=== PATIENT | male | born 1945 | race Caucasian/White ===

== ENCOUNTER 2017-02-20 14:29 | Emergency (ER) | payer MEDICARE ==
[~2017-02-20] VITALS: Ht 177.8 cm; Wt 104.5 kg
[~2017-02-20 14:29] MED LIST: AMARYL1 MG PO; CYMBALTA60 MG PO; FUROSEMIDE20 MG PO; LOSARTAN POT50 MG PO; XARELTO20 MG PO; ZPAK PO
[2017-02-20] MEDS ORDERED: DIGOXIN0.25 MG PO (15:17)
[2017-02-20] MEDS ORDERED: CARVEDILOL3.125 MG PO (15:17)
[2017-02-20] MEDS ORDERED: GABAPENTIN100 MG PO (15:18)
[2017-02-20] MEDS ORDERED: COUMADIN5 MG PO (15:19)
[2017-02-20] MEDS ORDERED: BUMETANIDE1 MG PO (15:19)
[2017-02-20 15:34] LABS: HEMATOCRIT 44.6 % (39.0-50.0); IMMATURE GRANULOCYTES 0.3 % (0.0-1.0); MEAN CELL VOLUME 92.5 fL CALC (80.0-100.0); MEAN CORPUSCULAR HGB CONC 31.4 g/L CALC (32.0-36.0); NEUT# 5.78 thou/uL (1.82-7.42); RED BLOOD COUNT 4.82 mill/uL (4.70-6.10); RED CELL DISTRI WIDTH 15.9 % (11.5-15.5)
[2017-02-20 15:51] LABS: INTERNATIONAL NORMALIZED RATIO 1.4 RATIO (0.7-1.3); PROTHROMBIN TIME 15.2 SECONDS (9.0-12.5)
[2017-02-20 15:55] LABS: ALBUMIN 3.8 g/dL (3.2-5.0); BILIRUBIN, TOTAL 1.3 mg/dL (0.0-1.4); CALCIUM 8.7 mg/dL (8.4-10.2); CREATININE 3.3 mg/dL (0.7-1.3); TOTAL PROTEIN 6.6 g/dL (6.3-8.2)
[2017-02-20 16:00] LABS: POTASSIUM 5.4 mmol/l (3.5-5.1)
[2017-02-20 17:38] VITALS: BP 110/52
== END 2017-02-20 17:39 | disposition short-term general hospital (02) ==
LOC: ED 14:29
PROVIDERS: Emergency Medicine
DX: E87.5 Hyperkalemia (principal); E86.0 Dehydration; N17.9 Acute kidney failure, unspecified; T46.0X5A Adverse effect of cardiac-stimulant glycosides and drugs of similar action, initial encounter; Y92.009 Unspecified place in unspecified non-institutional (private) residence as the place of occurrence of the external cause; R94.31 Abnormal electrocardiogram [ECG] [EKG]

== ENCOUNTER 2018-08-07 09:49 | Inpatient (IN) | payer MEDICARE ==
[~2018-08-07] VITALS: Ht 175.3 cm; Wt 106.6 kg
[~2018-08-07 09:49] MED LIST changes: +BUMETANIDE1 MG PO; +CARVEDILOL3.125 MG PO; +COUMADIN5 MG PO; +DIGOXIN0.25 MG PO; +GABAPENTIN100 MG PO
[2018-08-07 10:13] LABS: HEMATOCRIT 55.2 % (39.0-50.0); HEMOGLOBIN 18.7 g/dl (14.0-18.0); MEAN CELL VOLUME 91.4 fL CALC (80.0-100.0); MEAN CORPUSCULAR HGB CONC 33.9 g/L CALC (32.0-36.0); NEUT# 7.59 thou/uL (1.82-7.42); RED BLOOD COUNT 6.04 mill/uL (4.70-6.10); RED CELL DISTRI WIDTH 14.1 % (11.5-15.5)
[2018-08-07] MEDS ORDERED: PERCOCET 5/325M1 TAB PO (10:22)
[2018-08-07] MEDS ORDERED: SPIRONOLACTONE25 MG PO (10:24)
[2018-08-07] MEDS ORDERED: PREDNISONE1 MG OU (10:26)
[2018-08-07] MEDS ORDERED: KETOROLAC TROME0.4 % OU (10:27)
[2018-08-07] MEDS ORDERED: WARFARIN5 MG PO (10:28)
[2018-08-07 10:47] LABS: BILIRUBIN, TOTAL 1.4 mg/dL (0.0-1.4); CREATININE 1.9 mg/dL (0.7-1.3); POTASSIUM 4.9 mmol/l (3.5-5.1)
[2018-08-07 10:49] LABS: TOTAL PROTEIN 8.7 g/dL (6.3-8.2)
[2018-08-07 12:59] LABS: INTERNATIONAL NORMALIZED RATIO 4.6 RATIO (0.7-1.3); PROTHROMBIN TIME 53.6 SECONDS (9.0-12.5)
[2018-08-07 13:45] VITALS: BP 117/60
[2018-08-07 16:29] VITALS: BP 91/60
[2018-08-07 20:43] VITALS: BP 133/63
[2018-08-08 04:10] VITALS: BP 133/73
[2018-08-08 05:03] LABS: IMMATURE GRANULOCYTES 0.9 % (0.0-5.0); MEAN CORPUSCULAR HGB 30.8 pG CALC (26.0-32.0); MEAN CORPUSCULAR HGB CONC 34.3 g/L CALC (32.0-36.0); NEUT# 5.84 thou/uL (1.82-7.42); RED BLOOD COUNT 5.19 mill/uL (4.70-6.10); RED CELL DISTRI WIDTH 13.3 % (11.5-15.5)
[2018-08-08 05:05] LABS: HEMATOCRIT 46.7 % (39.0-50.0)
[2018-08-08 05:18] LABS: BILIRUBIN, TOTAL 0.5 mg/dL (0.0-1.4); CREATININE 1.9 mg/dL (0.7-1.3); POTASSIUM 4.7 mmol/l (3.5-5.1)
[2018-08-08 05:19] LABS: TOTAL PROTEIN 6.2 g/dL (6.3-8.2)
[2018-08-08 05:20] LABS: ALBUMIN 3.8 g/dL (3.2-5.0); MAGNESIUM 2.4 mg/dL (1.6-2.3)
[2018-08-08 07:39] VITALS: BP 100/59
[2018-08-08 15:31] VITALS: BP 107/56
[2018-08-08 20:10] VITALS: BP 117/75
[2018-08-09 04:16] VITALS: BP 130/68
[2018-08-09 05:39] LABS: ALBUMIN 3.8 g/dL (3.2-5.0); CREATININE 1.7 mg/dL (0.7-1.3); POTASSIUM 4.8 mmol/l (3.5-5.1)
[2018-08-09 08:55] VITALS: BP 149/72
[2018-08-09 09:58] LABS: PROTHROMBIN TIME 46.5 SECONDS (9.0-12.5)
[2018-08-09] MEDS ORDERED: OXYCODONE/ACETA1 TA8 PO (11:44)
[2018-08-09 14:45] VITALS: BP 131/69
[2018-08-09 19:23] VITALS: BP 131/65
[2018-08-10 05:20] VITALS: BP 123/73
[2018-08-10 06:47] LABS: HEMATOCRIT 47.7 % (39.0-50.0); HEMOGLOBIN 16.1 g/dl (14.0-18.0); IMMATURE GRANULOCYTES 1.5 % (0.0-5.0); MEAN CELL VOLUME 92.4 fL CALC (80.0-100.0); MEAN CORPUSCULAR HGB 31.2 pG CALC (26.0-32.0); MEAN CORPUSCULAR HGB CONC 33.8 g/L CALC (32.0-36.0); NEUT# 7.75 thou/uL (1.82-7.42); RED BLOOD COUNT 5.16 mill/uL (4.70-6.10); RED CELL DISTRI WIDTH 13.5 % (11.5-15.5)
[2018-08-10 06:57] LABS: ALBUMIN 3.3 g/dL (3.2-5.0); ALKALINE PHOSPHATASE 45 u/l (38-126); BILIRUBIN, TOTAL 0.4 mg/dL (0.0-1.4); BUN 45 mg/dL (8-23); BUN/CREATININE RATIO 37 (12-20 (CALC)); CARBON DIOXIDE 27 mmol/l (22-30); CHLORIDE 107 mmol/l (95-108); CREATININE 1.2 mg/dL (0.7-1.3); GFR 60 ML/MIN (>=60 (CALC)); GFR FOR AFR.AMER. > 60 ML/MIN (>=60 (CALC)); MAGNESIUM 2.4 mg/dL (1.6-2.3); SGOT/AST 16 u/l (19-48); SGPT/ALT 24 u/l (11-66); SODIUM 141 mmol/l (137-146); TOTAL PROTEIN 5.7 g/dL (6.3-8.2)
[2018-08-10 06:58] LABS: ANION GAP 13 (6-22 (CALC)); POTASSIUM 5.7 mmol/l (3.5-5.1)
[2018-08-10 07:02] LABS: INTERNATIONAL NORMALIZED RATIO 2.2 RATIO (0.7-1.3); PROTHROMBIN TIME 24.8 SECONDS (9.0-12.5)
[2018-08-10 08:20] VITALS: BP 122/72
[2018-08-10 16:35] VITALS: BP 133/60
[2018-08-10 19:21] VITALS: BP 129/57
[2018-08-11 04:53] VITALS: BP 149/81
[2018-08-11 05:44] LABS: ANION GAP 11 (6-22 (CALC)); BUN 41 mg/dL (8-23); BUN/CREATININE RATIO 36 (12-20 (CALC)); CARBON DIOXIDE 28 mmol/l (22-30); CHLORIDE 107 mmol/l (95-108); CREATININE 1.1 mg/dL (0.7-1.3); GFR > 60 ML/MIN (>=60 (CALC)); GFR FOR AFR.AMER. > 60 ML/MIN (>=60 (CALC)); MAGNESIUM 2.4 mg/dL (1.6-2.3); SODIUM 141 mmol/l (137-146)
[2018-08-11 05:48] LABS: POTASSIUM 5.2 mmol/l (3.5-5.1)
[2018-08-11 05:56] LABS: INTERNATIONAL NORMALIZED RATIO 1.6 RATIO (0.7-1.3); PROTHROMBIN TIME 18.1 SECONDS (9.0-12.5)
[2018-08-11 06:00] LABS: HEMATOCRIT 44.5 % (39.0-50.0); HEMOGLOBIN 14.9 g/dl (14.0-18.0); MEAN CELL VOLUME 92.7 fL CALC (80.0-100.0); MEAN CORPUSCULAR HGB CONC 33.5 g/L CALC (32.0-36.0); RED BLOOD COUNT 4.8 mill/uL (4.70-6.10); RED CELL DISTRI WIDTH 13.5 % (11.5-15.5)
[2018-08-11 07:50] VITALS: BP 126/84
[2018-08-11 15:25] VITALS: BP 145/74
[2018-08-11 19:05] VITALS: BP 126/70
[2018-08-12 04:21] VITALS: BP 154/75
[2018-08-12 04:44] LABS: HEMATOCRIT 45.8 % (39.0-50.0); HEMOGLOBIN 15.3 g/dl (14.0-18.0); MEAN CELL VOLUME 91.2 fL CALC (80.0-100.0); MEAN CORPUSCULAR HGB 30.5 pG CALC (26.0-32.0); MEAN CORPUSCULAR HGB CONC 33.4 g/L CALC (32.0-36.0); RED BLOOD COUNT 5.02 mill/uL (4.70-6.10); RED CELL DISTRI WIDTH 13.4 % (11.5-15.5)
[2018-08-12 04:59] LABS: ANION GAP 11 (6-22 (CALC)); BUN 40 mg/dL (8-23); BUN/CREATININE RATIO 35 (12-20 (CALC)); CARBON DIOXIDE 31 mmol/l (22-30); CHLORIDE 104 mmol/l (95-108); CREATININE 1.2 mg/dL (0.7-1.3); GFR 60 ML/MIN (>=60 (CALC)); GFR FOR AFR.AMER. > 60 ML/MIN (>=60 (CALC)); MAGNESIUM 2.2 mg/dL (1.6-2.3); POTASSIUM 4.4 mmol/l (3.5-5.1); SODIUM 142 mmol/l (137-146)
[2018-08-12 05:04] LABS: INTERNATIONAL NORMALIZED RATIO 1.3 RATIO (0.7-1.3); PROTHROMBIN TIME 14.8 SECONDS (9.0-12.5)
[2018-08-12 08:14] VITALS: BP 133/65
[2018-08-12 15:27] VITALS: BP 133/54
[2018-08-12 19:15] VITALS: BP 144/83
[2018-08-13 04:43] VITALS: BP 130/70
[2018-08-13 07:40] VITALS: BP 148/82
[2018-08-13 09:39] VITALS: BP 130/70
[2018-08-13] MEDS ORDERED: ZITHROMAX500 MG PO (11:11)
== END 2018-08-13 12:38 | disposition home or self-care (01) | DRG 291 ==
LOC: ED 09:49 → ED-I 10:35 → ED 10:35 → ED-I 12:05 → ED 12:45 → MS2 12:46
PROVIDERS: Emergency Medicine; Internal Medicine Nephrology; Nurse Practitioner Family; ADMIT Internal Medicine Nephrology; ATTEND Internal Medicine Nephrology
DX: I13.0 Hypertensive heart and chronic kidney disease with heart failure and stage 1 through stage 4 chronic kidney disease, or unspecified chronic kidney disease (principal); J18.9 Pneumonia, unspecified organism; J96.22 Acute and chronic respiratory failure with hypercapnia; I50.21 Acute systolic (congestive) heart failure; J44.1 Chronic obstructive pulmonary disease with (acute) exacerbation; G90.512 Complex regional pain syndrome I of left upper limb; N17.9 Acute kidney failure, unspecified; J44.0 Chronic obstructive pulmonary disease with (acute) lower respiratory infection; I73.9 Peripheral vascular disease, unspecified; I48.2 Chronic atrial fibrillation; E11.22 Type 2 diabetes mellitus with diabetic chronic kidney disease; N18.3 Chronic kidney disease, stage 3 (moderate); M89.8X9 Other specified disorders of bone, unspecified site; E87.5 Hyperkalemia; K59.00 Constipation, unspecified; Z91.19 Patient's noncompliance with other medical treatment and regimen; Z95.0 Presence of cardiac pacemaker; Z79.01 Long term (current) use of anticoagulants; Z95.820 Peripheral vascular angioplasty status with implants and grafts
CPT/HCPCS: G0378; J1650; J3475

== ENCOUNTER 2020-04-06 11:40 | Observation (INO) | payer MEDICARE ==
[~2020-04-06] VITALS: Ht 172.7 cm; Wt 109.9 kg
[~2020-04-06 11:40] MED LIST changes: +KETOROLAC TROME0.4 % OU; +OXYCODONE/ACETA1 TA8 PO; +PERCOCET 5/325M1 TAB PO; +PREDNISONE1 MG OU; +SPIRONOLACTONE25 MG PO; +WARFARIN5 MG PO; +ZITHROMAX500 MG PO
--- NOTE | 2020-04-06 11:50 | NUR ---
PT. WHEELED TO TREATMENT ROOM.
[2020-04-06] MEDS ORDERED: ENTRESTO 24-261 TAB PO (12:48)
[2020-04-06] MEDS ORDERED: CARVEDILOL6.25 MG PO (12:48)
[2020-04-06] MEDS ORDERED: ELIQUIS5 MG PO (12:48)
--- NOTE | 2020-04-06 12:50 | NUR ---
PT RESTING ON STRETCHER; NO S/S OF DISTRESS NOTED; MONITORING DEVICES IN PLACE; VSS; PT ADVISED OF CONTINUED WAIT TIME FOR RESULTS; CALL LIGHT WITHIN REACH; WIILL CONTINUE TO MONITOR
--- NOTE | 2020-04-06 13:45 | NUR ---
AYLA CAM AT BEDSIDE TO DISCUSS POC AND FINDINGS
--- NOTE | 2020-04-06 14:05 | NUR ---
AFTER MULTIPLE ATTEMPTS TO ASSIST PATIENT WITH AMBULATION, PT. REMAINS UNABLE TO, BUT AGREEABLE AT THIS TIME FOR ADMISSION. ASSISTED INTO GOWN AND PROVIDED WITH URINAL.
[2020-04-06 14:42] LABS: URINE BILIRUBIN - DIPSTICK NEGATIVE (NEGATIVE); URINE BLOOD DIPSTICK NEGATIVE (NEGATIVE); URINE CLARITY CLEAR; URINE COLOR YELLOW; URINE GLUCOSE - DIPSTICK NEGATIVE (NEGATIVE); URINE KETONE NEGATIVE (NEGATIVE); URINE LEUK ESTERASE NEGATIVE (Negative); URINE NITRITE - DIPSTICK NEGATIVE (Negative); URINE PROTEIN - DIPSTICK NEGATIVE (NEG-TRACE); URINE SPECIFIC GRAVITY 1.015; URINE UROBILINOGEN - DIPSTICK 0.2 E.U./dL (0.2)
--- NOTE | 2020-04-06 14:55 | NUR ---
IV INITIATED AND LABS DRAWN; PT ADVISED OF CONTINUED WAIT TIME FOR ADMISSION; DENIES ANY NEEDS AT THIS TIME; CALL LIGHT WITHIN REACH; WILL CONTINUE TO MONITOR
--- NOTE | 2020-04-06 15:24 | NUR ---
URINAL PROVIDED PER PT REQUEST.
[2020-04-06 15:27] LABS: HEMATOCRIT 46.5 % (39.0-50.0); HEMOGLOBIN 15.3 g/dl (14.0-18.0); IMMATURE GRANULOCYTES 1.6 % (0.0-5.0); MEAN CELL VOLUME 93.2 fL CALC (80.0-100.0); MEAN CORPUSCULAR HGB 30.7 pG CALC (26.0-32.0); MEAN CORPUSCULAR HGB CONC 32.9 g/dL CAL (32.0-36.0); NEUT# 3.95 thou/uL (1.82-7.42); RED BLOOD COUNT 4.99 mill/uL (4.70-6.10); RED CELL DISTRI WIDTH 12.8 % (11.5-15.5)
[2020-04-06 15:44] LABS: ALBUMIN 4.3 g/dL (3.2-5.0); CREATININE 2.1 mg/dL (0.7-1.3); POTASSIUM 4.9 mmol/l (3.5-5.1)
[2020-04-06 15:49] LABS: BILIRUBIN, TOTAL 0.9 mg/dL (0.0-1.4)
--- NOTE | 2020-04-06 15:55 | NUR ---
DR ROMERO AT BEDSIDE TO DISCUSS POC AND FINDINGS
--- NOTE | 2020-04-06 16:50 | NUR ---
PT RESTING ON STRETCHER; NO S/S OF DISTRESS NOTED; VSS; ADVISED OF CONTINUED WAIT TIME; WILL CONTINUE TO MONITOR
--- NOTE | 2020-04-06 17:10 | NUR ---
PT ARRIVED VIA STRETCHER ACCOMPANIED BY STAFF. IV SITE IS FREE FROM REDNESS OR EDEMA. TELE MONITOR IN PLACE
--- NOTE | 2020-04-06 17:20 | NUR ---
ASSESSMENT IS COMPLTED: IV SITE IS FREE FROM REDNESS OR EDEMA. HR IS REG,PULSES ARE STRONG X4, ABD IS SOFT WITH ACTIVE BS. BREATH SOUNDS ARE CLEAR,BILATERALLY. TELE MONITOR IN PLACE. PT HAS RED COLORED ON HIS LEGS.CONTINUE TO OBSERVE AND MONITOR.
--- NOTE | 2020-04-06 17:20 | NUR ---
Admission Note Report Given to: LAKHWINDER ZARATE Transported by: Wheelchair X Stretcher Transported with: X Nurse Transporter X Patent IV O2 X Rodent Exterminator Location: ICU X MS2
[2020-04-06 17:31] VITALS: BP 125/60
--- NOTE | 2020-04-06 17:45 | NUR ---
PT CALLED EX AND INQUIRED ABOUT BRINGING HIS C PAP MACHINE. HE USES AT NIGHT.
[2020-04-06 19:04] VITALS: BP 102/53
--- NOTE | 2020-04-06 19:55 | NUR ---
ASSESSMENT COMPLETED. PT. DENIES NEEDS/PAIN AT THIS TIME. BLE WITH SWELLING NOTED LEFT ANKLE WITH SLIGHTLY MORE SWELLING NOTED. SMALL ABRASION NOTED TO LLE, PER PT. HE SCARPED IT ONTO WOOD AT HOME; NO DRAINAGE NOTED. EDCUATED ON POC AND VERBALIZES UNDERSTANDING. TELEMETRY IN PLACE. ENCOURAGED TO CALL FOR ANY NEEDS. CALL LIGHT IS IN REACH. WILL CONTINUE TO MONITOR.
--- NOTE | 2020-04-06 22:02 | NUR ---
PT. C/O CHRONIC LEFT ARM PAIN AND MEDICATED WITH ORDERED PRN PERCOCET PER REQUEST AND ORDER; WILL REASSESS.
--- NOTE | 2020-04-07 00:57 | NUR ---
pt. c/o sleeplessness and medicated with ordered prn sonata. denies further needs. call light is in reach.
[2020-04-07 04:17] VITALS: BP 101/49
--- NOTE | 2020-04-07 04:20 | NUR ---
SITTING UP IN BED WITH NO DISTRESS NOTED. FRESH WATER GIVEN. ENCOURAGED TO CALL FOR ANY NEEDS. CALL LIGHT IS IN REACH.
[2020-04-07 05:21] LABS: CREATININE 1.9 mg/dL (0.7-1.3); POTASSIUM 4.4 mmol/l (3.5-5.1)
--- NOTE | 2020-04-07 05:30 | NUR ---
COFFEE PROVIDED PER PT'S REQUEST; DENIES FURTHER NEEDS. CALL LIGHT IS IN REACH.
--- NOTE | 2020-04-07 07:48 | NUR ---
RECIEVED REPORT FROM RAFAELA JONES. PT RESTING IN SEMI FOWLERS POSITION WATCHING TV WHEN ENTERING THE ROOM. INTRODUCED SELF TO PT AND DISCUSSED POC. PT DENIES ANY PAIN OR DISCOMFORTS AT THIS TIME. ALL SAFTEY PRECAUTIONS IN PLACE WITH CALL LIGHT IN REACH. WILL CONTINUE TO MONITOR.
--- NOTE | 2020-04-07 08:00 | NUR ---
ASSMENT COMPLETE AND VITAINS OBTAINED. BP 101/40, PULSE 60, O2 92% ON ROOM AIR. HEART RHYTHM NORMAL, BOWEL SOUNDS ACTIVE IN ALL QUADRANTS, AND SLIGHT WHEEZING ON EXHALATION. RADIAL AND PEDAL PULSES STRONG WITH NORMAL CAPILLARY REFILL. 2+ EDEMA IN LOWER EXTREMITIES, MORE SO IN THE LEFT. SKIN IS COOL, DRY AND INTACT. IV FLUIDS RUNNING, SITE APPEARS HEALTHY AND PATENT. PT DESCRIBES SOME PAIN IN THE LEFT FOOT BUT REFUSES MEDICATION. SMALL ABRASSION TO LEFT LEG, GUAZE AND TAPE APPLIED. PT DENIES OTHER ANY PAIN OR DISCOMFORTS AT THIS TIME. ALL SAFTEY PRECAUTIONS IN PLACE WITH CALL LIGHT IN REACH. WILL CONTINUE TO MONITOR.
[2020-04-07 08:24] VITALS: BP 101/40
[2020-04-07 11:00] VITALS: BP 101/59
--- NOTE | 2020-04-07 11:40 | NUR ---
DR OROZCO AT BEDSIDE DISCUSSING POC.
--- NOTE | 2020-04-07 12:00 | NUR ---
PT SLEEPING IN LOW FOWLERS POSITION. BREATHING IS EVEN AND UNLABORED ON ROOM AIR . NO SIGNS OF ANY PAIN OR DISCOMFORTS AT THIS TIME. TELE IN PLACE READING PACED RATE 68 PER ER MONITOR. ALL SAFTEY PERCAUTIONS IN PLACE WITH CALL LIGHT IN REACH. WILL CONTINUE TO MONITOR.
--- NOTE | 2020-04-07 14:28 | NUR ---
PHYSICAL THERAPY IN ROOM WORKING WITH PT.
[2020-04-07 15:30] VITALS: BP 110/64
--- NOTE | 2020-04-07 16:00 | NUR ---
PT RESTING IN SEMI FOWLERS POSITION. EVEN IS EVEN AND UNLABORED ON ROOM AIR. PT REPORTS THAT THE PERCOCET IS WORKING. AT THIS TIME PT DENIES ANY OTHER PAIN. TELE IN PLACE. ALL SAFTEY PRECAUTIONS IN PLACE WITH CALL LIGHT IN REACH. WILL CONTINUE TO MONITOR.
--- NOTE | 2020-04-07 18:34 | NUR ---
PT SLEEPING IN SEMI FOWLERS POSTION. BREATHING IS EVEN AND UNLABORED ON ROOM AIR. NO SIGNS OF ANY PAIN OR DISCOMFORTS AT THIS TIME. TELE IN PLACE. ALL SAFTEY PRECAUTIONS IN PLACE WITH CALL LIGHT IN REACH. WILL CONTINUE TO MONITOR.
[2020-04-07 19:20] VITALS: BP 98/48
--- NOTE | 2020-04-07 20:10 | NUR ---
ASSESSMENT COMPLETED. PT. SITTING UP IN BED WATCHING TV. NO DISTRESS NOTED; DENIES NEEDS/PAIN. PO FLUIDS OFFERED. SCHED MEDS GIVEN. UPDATED ON POC AND VERBALIZES UNDERSTANDING. SWELLING NOTED TO LOWER EXTREMETIES GREATER TO LEFT ANKLE AND DISCOLORATION NOTED TO BLE(CHRONIC). MINIMAL AIRPORT BAGGAGE SCREENER TO LEFT HAND (PT'S NORMAL). SNACK PROVIDED. ENCOURAGED TO CALL FOR ANY NEEDS. CALL LIGHT IS IN REACH.
--- NOTE | 2020-04-07 22:21 | NUR ---
PT. C/O LEFT ARM AND BLE PAIN 10/10 AND MEDICATED WITH ORDERED PRN PERCOCET AND ASSISTED TO REPOSITION; WILL REASSESS. DENIES FURTHER NEEDS.
--- NOTE | 2020-04-07 23:30 | NUR ---
DR. OROZCO CALLED AND ASKED PROVIDER IF PT. NEEDED TO BE CHANGED TO INPATIENT. SPOKE TO WATER CHASER, TESSA HERNANDEZ, AT THIS TIME. PER CM, PT. DID NOT MEET CRITERIA AND SHE WOULD NOTIFY DR. OROZCO.
[2020-04-08] VITALS (7 sets, daily range): BP systolic 97–120; BP diastolic 30–59
--- NOTE | 2020-04-08 03:00 | NUR ---
PT. PULLED UP IN BED AND REPOSITIONED ON RIGHT SIDE WITH PILLOW. ENCOURAGED PT. TO REPOSITION BUTTOCKS WHILE IN BED. TACHO [facility] PROVIDED AND NEW DRAW SHEET AND PAD APPLIED.
--- NOTE | 2020-04-08 05:21 | NUR ---
DENIES NEEDS. URINAL IS EMPTIED. CALL LIGHT IS IN REACH.
[2020-04-08 05:23] LABS: HEMATOCRIT 40.8 % (39.0-50.0); HEMOGLOBIN 13.7 g/dl (14.0-18.0); MEAN CELL VOLUME 92.1 fL CALC (80.0-100.0); MEAN CORPUSCULAR HGB 30.9 pG CALC (26.0-32.0); MEAN CORPUSCULAR HGB CONC 33.6 g/dL CAL (32.0-36.0); RED BLOOD COUNT 4.43 mill/uL (4.70-6.10); RED CELL DISTRI WIDTH 12.7 % (11.5-15.5)
[2020-04-08 05:41] LABS: BILIRUBIN, TOTAL 1.1 mg/dL (0.0-1.4); CREATININE 1.8 mg/dL (0.7-1.3); POTASSIUM 4.4 mmol/l (3.5-5.1); TOTAL PROTEIN 5.7 g/dL (6.3-8.2)
[2020-04-08 05:53] LABS: ALBUMIN 3.4 g/dL (3.2-5.0)
--- NOTE | 2020-04-08 07:17 | NUR ---
RECIEVED REPORT FROM RAFAELA JONES. PT SLEEPING IN HIGH FOWLERS POSITION WITH CPAP ON WHEN ENTERED ROOM. BREATHING IS EVEN AND UNLABORED. NO SIGNS OF ANY PAIN OR DISCOMFORTS AT THIS TIME. ALL SAFTEY PERCAUTIONS IN PLACE WITH CALL LIGHT IN REACH, WILL CONTINUE TO MONITOR.
--- NOTE | 2020-04-08 08:52 | NUR ---
ASSESMENT COMPLETE AND VITALS OBTAINED. BP 112/33, HR 59, O2 93% ON ROOM AIR. HEART RHYTHM IS NORMAL, BREATH SOUNDS ARE CLEAR, BOWEL SOUNDS ARE ACTIVE IN ALL QUADRANTS. RADIAL AND REDAL PULSES ARE STRONG. LEFT SIDE IS WEAK DUE TO PALSY ON LEFT ARM. 2+ EDEMA OF LOWER EXTREMITIES, SKIN APPEARS MODERATELY RED, LEGS ELVATED. IV FLUSHED, SITE APPEARS HEALTHY AND PATENT. PT LAST BOWEL MOVEMENT 04/05/20, MOM SUGGESTED, PT ACCEPTED. TELE IN PLACE READING PACED RATE 60 PER ER MONITOR. PT INFORMED WRITTER THAT LEFT ARM WAS BOTHERING HIM BUT DIDNT WANT ANYTHING YET. PT DENIES ANY OTHER DISCOMFORTS AT THIS TIME, ALL SAFTEY PRECAUTIONS IN PLACE WITH CALL LIGHT IN REACH. WILL CONTINUE TO MONIOTR.
--- NOTE | 2020-04-08 11:44 | NUR ---
DR. OROZCO AAT BED SIDE DISCUSSING POC.
--- NOTE | 2020-04-08 12:39 | NUR ---
PT RESTING IN SEMI FOWLERS POSITION WATCHING TV. BREATHING IS EVEN AND UNLABORED ON ROOM AIR. PT DENIES ANY PAIN OR DISCOMFORTS AT THIS TIME.TELE IN PLACE. ALL SAFTEY PRECAUTIONS IN PLACE WITH CALL LIGHT IN REACH. WILL CONTINUE TO MONITOR
--- NOTE | 2020-04-08 13:30 | NUR ---
RAFAELA ALBERT FROM ER REPORTS 12 BEAT RUN OF V-TACH. PT RESTING IN SEMI FOWLERS POSITION,DENIES ANY CURRENT PAIN OR DISCOMFORTS,DROWSY;VS OBTAINED BP 98/30 HR 65, J,UGORN NOTIFIED AND NO NEW ORDERS RECEIVED AT THIS TIME;CALL LIGHT IN REACH;WILL CONTINUE TO MONITOR
--- NOTE | 2020-04-08 15:32 | NUR ---
PT SLEEPING IN HIGH FOWLERS POSTION, PT APPEARS TO BE VERY DROWSY AFTER GIVEN PERCOCET FOR PAIN. BREATHING IS EVEN AND UNLABORED. NO SIGNS OF ANY PAIN OR DISCOMFORTS. TELE IN PLACE. ALL SAFTEY PRECAUTIONS IN PLACE WITH CALL LIGHT IN REACH. WILL CONTINUE TO MONITOR.
--- NOTE | 2020-04-08 18:18 | NUR ---
PT SLEEPING IN HIGH FOWLERS POSITION. RESPIRATTIONS ARE EVEN AND UNLABORED. NO SIGNS OF ANY PAIN OR DISCOMFORTS AT THIS TIME. TELE IS IN PLACE. ALL SAFTEY PRECAUTIONS IN PLACE WITH CALL LIGHT IN REACH. WILL CONTINUE TO MONITOR.
--- NOTE | 2020-04-08 19:35 | NUR ---
PT RESTING IN BED, NO SIGNS OF DISTRESS NOTED, RESP EVEN AND UNLABORED. PT ALERT AND ORIENTED X3, DISCUSSED POC, NOTED HOME CPAP AT BEDSIDE, BLE REDDENED AND SWELLING PT C/O PAIN TO TOUCH, OFFERED PT PAIN MEDICATION PT DECLINED AT THIS TIME. ASSESSMENT COMPLETED, CALL LIGHT IN REACH,CONTINUE TO MONITOR.
--- NOTE | 2020-04-08 21:34 | NUR ---
PT RESTING IN BED WITH EYES CLOSED, CPAP IN PLACE, RESP EVEN AND UNLABORED, NO SIGNS OF DISTRESS NOTED, CALL LIGHT IN REACH,CONTINUE TO MONITOR.
[2020-04-09 00:03] VITALS: BP 85/57
--- NOTE | 2020-04-09 01:42 | NUR ---
PT RESTING IN BED WITH EYES CLOSED, CPAP IN PLACE, CALL LIGHT IN REACH,CONTINUE TO MONITOR.
[2020-04-09 04:15] VITALS: BP 96/54
--- NOTE | 2020-04-09 07:50 | NUR ---
RECIEVED REPORT FROM Nazia LOVE LPN. PT RESTING IN SEMI FOWLERS POSITION WATCING TV UPON ENTERING ROOM. INTRODUCED SELF TO PT AND DICUSSED POC. ASSESSMENT AND VITALS COMPLETE. BP 115/63, HR 64, O2 90% ON ROOM AIR. PT A/O X3. HEART RHYTHM NORMAL, LUNG SOUNDS CLEAR, BOWEL SOUNDS ACTIVE IN ALL QUADRANTS. RADIAL PULSES STRONG WITH NORMAL CAPILLARY REFILL. PT UNABLE TO MOVE LEFT ARM DUE TO PALSY. 2+EDEMA IN BOTH LOWER EXTREMITIES, SKIN APPEARS SLIGHTLY RED. PEDAL PULSES WEAK, HARD TO PALPATE DUE TO EDEMA.SMALL ABRASION TO LEFT LEG FROM FALL AT HOME, GUAZE AND TAPE APPLIED. TELE IN PLACE. IV FLUSHED, SITE APPEARS HEALTHY AND PATENT. PT DENIES ANY PAIN OR DISCOMFORTS AT THIS TIME. ALL SAFTEY PRECAUTIONS IN PLACE WITH CALL LIGHT IN REACH. WILL CONTINUE TO MONITOR.
[2020-04-09 07:56] VITALS: BP 115/63
[2020-04-09 11:19] VITALS: BP 99/56
--- NOTE | 2020-04-09 12:01 | NUR ---
DR OROZCO AT BEDSIDE DISCUSSING POC.
[2020-04-09] MEDS ORDERED: ELIQUIS2.5 MG PO (12:07)
[2020-04-09] MEDS ORDERED: PERCOCET 5/325M1 TAB PO (12:07)
--- NOTE | 2020-04-09 12:35 | NUR ---
AT BEDSIDE ASSESSING AND DRESSING WOUND.
--- NOTE | 2020-04-09 13:47 | NUR ---
04/08/20 PT note: Patient is seen x 2 for rehab. In Am he worked on bed mobility including pushing himself up in the bed. he c/o right ankle pain but was able to accomplish rolling STS and up in bed with mod assist of1. Later in the PM he was seen for attempts at transfers and standing. He got to EOB with mod assist of 2 but was unable to stand due to confusion and anxiety. His ROM was also limited in the LEs due to pain but he admits this has improved since AM. Overall his Am Pac is unchanged since eval and he would doo well in ECF to have time to rehab and decrease his burden of care as well as return to ambulatory state
--- NOTE | 2020-04-09 14:09 | NUR ---
PT RESTING IN SEMI FOWLERS POSITION WATCHING TV. BREATHING IS EVEN AND UNLABORED WITH 2L O2. PT HAS YET TO HAVE BM. PT ASKED FOR BED SHINE BUT WAS NOT ABLE TO HAVE A BM.PT DENIES ANY PAIN OR DISCOMFORTS AT THIS TIME. ALL SAFTEY PRECAUTIONS IN PLACE WITH CALL LIGHT IN REACH. WILL CONTINUE TO MONITOR.
--- NOTE | 2020-04-09 15:58 | NUR ---
PT RESTING IN HIGH SEMI FOWLERS POSITION WATCHING TV. BREATHING IS EVEN AND UNLABORED.TELE IN PLACE. PT WAS UNABLE TO HAVE A BM AFTER ADMINISTERING MILK OF MAG AND COLACE. PT WAS NOT ABLE TO BE DISCHARGED TO REHAB UNTIL BM WAS MADE. Chelo DOUGHERTY ORDERED MIRALAX AND SUPPOSITORY, ADMINISTERED TO PT. PT WAS ABLE TO HAVE A BM. WAITING ON FURTHER DISCHARGE INSTRUCTIONS AT THIS TIME. PT DENIES ANY PAIN OR DISCOMFORTS AT THIS TIME. ALL SAFTEY PRECAUTIONS IN PLACE WITH CALL LIGHT IN PLACE. ENCOURAAGED PT TO CALL FOR ASSISTANCE IF NEEDED. WILL CONTINUE TO MONITOR.
[2020-04-09 16:03] VITALS: BP 132/62
--- NOTE | 2020-04-09 18:41 | NUR ---
REPORT GIVEN TO RAFAELA PACK AT [facility]. TO FAX RX FOR PERCOCET TO [facility] FOR DISCHARGE.RAFAELA PACK VERBALIZES UNDERSTANDING.
--- NOTE | 2020-04-09 19:03 | NUR ---
SPOKE WITH RAFAELA PACK AT [facility]. PER SIRENA PERCOCET RX WAS RECEIVED FROM .
--- NOTE | 2020-04-09 19:17 | NUR ---
PT IV REMOVED AT THIS TIME, PT TOLERATED WELL. CATHATER STILL INTACTED, SITE WRAPPED WITH COBAND. PT DENIES ANY PAIN AT THIS TIME. ALL SAFTEY PRECAUTIONS IN PLACE WITH CALL LIGHT IN REACH. PT WAITING TRANSPORTATION BY [facility] TO REHAB. WILL CONTINUE TO MONITOR.
--- NOTE | 2020-04-09 19:36 | NUR ---
Discharge instructions given. Patient verbalizes understanding of same. Discharged in stable condition via Medical Transport to *Other with transport team . All belongings sent with pt. PT LEFT VIA STRETCHER WITH [facility] TRANSPORT TEAM IN STABLE CONDITION. PT BEING TRANSFERED TO [facility]. ALL BELONGINGS LEFT WITH PT, INCLUDING CPAP MACHINE.
== END 2020-04-09 18:36 ==
LOC: ED 11:40 → ED-I 12:09 → ED 12:09 → ED-I 16:10 → ED 16:14 → MS2 16:15
PROVIDERS: Nurse Practitioner Family; ADMIT Internal Medicine; ATTEND Internal Medicine
DX: E11.42 Type 2 diabetes mellitus with diabetic polyneuropathy (principal); N17.9 Acute kidney failure, unspecified; I13.0 Hypertensive heart and chronic kidney disease with heart failure and stage 1 through stage 4 chronic kidney disease, or unspecified chronic kidney disease; I50.9 Heart failure, unspecified; E11.22 Type 2 diabetes mellitus with diabetic chronic kidney disease; N18.9 Chronic kidney disease, unspecified; E11.51 Type 2 diabetes mellitus with diabetic peripheral angiopathy without gangrene; J44.9 Chronic obstructive pulmonary disease, unspecified; I48.91 Unspecified atrial fibrillation; G90.512 Complex regional pain syndrome I of left upper limb; Z87.891 Personal history of nicotine dependence; Z79.01 Long term (current) use of anticoagulants; Z60.2 Problems related to living alone; Z79.84 Long term (current) use of oral hypoglycemic drugs; Z11.59 Encounter for screening for other viral diseases
CPT/HCPCS: G0378

== ENCOUNTER 2020-04-17 12:28 | Inpatient (IN) | payer MEDICARE ==
[2020-04-17] VITALS (26 sets, daily range): BP systolic 80–147; BP diastolic 43–97
--- NOTE | 2020-04-17 09:37 | NUR ---
REPORT RECEIVED FROM NURSE IYER AT [facility]. PER NURSE PATIENT SHOULD BE LEAVING [place] IN ABOUT AN HOUR.
--- NOTE | 2020-04-17 11:40 | NUR ---
PATIENT DIRECT ADMIT ACCEPTED BY DR. CAMPBELL FROM [facility]. PT ADMITTED TO ICU8. PATIENT TRANSFERRED VIA EMS. PT INTUBATED AND ON PROPOFOL. PT TRANSFERRED TO ICU BED AND PLACE ON MONITOR AND VENTILATOR. PT NOTED TO HAVE ET TUBE 7.5 AT 25 AT THE LIP. PT TRANSFERRED WITH [facility]. PT NOTED TO HAVE SKIN TEAR ON L ARM. NO REDNESS OR WOUND NOTED ON COCCYX. PT IN AFIB/PACED ON MONITOR. DR. CAMPBELL AT BEDSIDE TO ASSESS PT.
--- NOTE | 2020-04-17 11:45 | NUR ---
PT ABLE TO FOLLOW COMMANDS ON ALL EXTREMETIES. PT ABLE TO OPEN EYES SPONTANIOUSLY, SHOW TO FINGERS ON BOTH HANDS AND WIGGLE TOES ON BOTH FEET. PER DR. CAMPBELL HOLD SEDATION AND ABTAIN ABG. PLAN FOR EXTUBATION TODAY. PT ATTEMPTED TO PULL ET TUBE. RESTRAINTS APPLIED. ORDER PLACED IN PATIENT CHART. WILL CONTINUE TO MONITOR.
--- NOTE | 2020-04-17 11:45 | NUR ---
PROPOFOL BOTTLE PULLED AT NURSES REQUEST FOR INTUBATED PATIENT ON PROPOFOL GTT.
--- NOTE | 2020-04-17 12:00 | NUR ---
PER DR CAMPBELL, WHEENE TO EXTUBATE IF ABG WITHIN NORMAL RANGE. PROPOFOL SPIKED AT BEDSIDE.
[~2020-04-17 12:28] MED LIST changes: +CARVEDILOL6.25 MG PO; +ELIQUIS2.5 MG PO; +ELIQUIS5 MG PO; +ENTRESTO 24-261 TAB PO
--- NOTE | 2020-04-17 12:30 | NUR ---
JANE ARIZMENDI NOTIFIED OF PATIENT BP 80/50. NO NEW ORDERS AT THIS TIME. WILL CONTINUE TO MONITOR.
--- NOTE | 2020-04-17 13:08 | NUR ---
RECEIEVED CALL FROM SHIREEN NURSE AT [facility]. PT COVID SWAB CAME BACK NEGATIVE. RESULTS TO BE FAXED AND PLACED INTO CHART.
--- NOTE | 2020-04-17 13:10 | NUR ---
SPOKE TO EX IRAM . IARM STATES SHE IS PATIENT MEDICAL POA. ADVANCE DIRECTIVE TO BE IN CHART. IRAM ABLE TO PROVIDE PATIENT BIRTHDAY. CODE GIVEN TO IRAM
[2020-04-17] MEDS ORDERED: ENDOCET1 TA1 PO (13:46)
[2020-04-17] MEDS ORDERED: AMARYL1 MG PO (13:46)
[2020-04-17] MEDS ORDERED: BUMETANIDE2 MG PO (13:47)
[2020-04-17] MEDS ORDERED: ELIQUIS5 MG PO (13:47)
--- NOTE | 2020-04-17 13:47 | NUR ---
PT IS INTUBATED, COMPLETED MEDREC VIA CLAIMS HISTORY
[2020-04-17 14:32] LABS: HEMATOCRIT 43.6 % (39.0-50.0); HEMOGLOBIN 14.4 g/dl (14.0-18.0); MEAN CELL VOLUME 92.8 fL CALC (80.0-100.0); MEAN CORPUSCULAR HGB 30.6 pG CALC (26.0-32.0); RED BLOOD COUNT 4.7 mill/uL (4.70-6.10); RED CELL DISTRI WIDTH 12.8 % (11.5-15.5)
--- NOTE | 2020-04-17 14:38 | NUR ---
PT ABLE TO FOLLOW COMMANDS ON ALL EXTREMEITIES. PT OXYGEN LEVEL STABLE. PT AWAKE. PT EXTUBATED AT 1438 BY RT. ACID RETORT OPERATOR DOMINIC NOTIFIED. AFTER EXTUBATION PATIENT ABLE TO ANSWER ORIENTATION QUESTIONS AND FOLLOW COMMANDS. PT PLACED ON HIGH FLOW NASAL CANULA. RESTRAINTS DISCONTINUED. NO DISTRESS NOTED. WILL CONTINUE TO MONITOR.
--- NOTE | 2020-04-17 14:47 | NUR ---
DR. CAMPBELL NOTIFIED PATIENT HAS BEEN EXTUBATED
--- NOTE | 2020-04-17 15:25 | NUR ---
EX IRAM CALLED AND UPDATED ON PATIENT STATUS
[2020-04-17 15:43] LABS: ALBUMIN 3.5 g/dL (3.2-5.0); ALKALINE PHOSPHATASE 60 u/l (38-126); ANION GAP 10 (6-22 (CALC)); BILIRUBIN, TOTAL 1.3 mg/dL (0.0-1.4); BUN 51 mg/dL (8-23); BUN/CREATININE RATIO 39 (12-20 (CALC)); CARBON DIOXIDE 31 mmol/l (22-30); CHLORIDE 103 mmol/l (95-108); CREATININE 1.3 mg/dL (0.7-1.3); GFR 54 ML/MIN (>=60 (CALC)); GFR FOR AFR.AMER. > 60 ML/MIN (>=60 (CALC)); POTASSIUM 4.2 mmol/l (3.5-5.1); SODIUM 139 mmol/l (137-146); TOTAL PROTEIN 6.3 g/dL (6.3-8.2)
[2020-04-17 15:46] LABS: SGOT/AST 31 u/l (19-48)
--- NOTE | 2020-04-17 16:16 | NUR ---
PT RESTING IN BED, NO DISTRESS NOTED. DENIES SOB. INSTRUCTIONS FOR IS GIVEN. PT RETURENED DEMONSTRATION. PT ABLE TO DRINK WATER WITHOUT ANY COUGH OR DROLLING. WILL CONTINUE TO MONITOR.
--- NOTE | 2020-04-17 18:02 | NUR ---
PT SITTING UP IN BED EATTING DINNER. NO DISTRESS NOTED. REPORT TO BE GIVEN TO NIGHT NURSE. WILL CONTINUE TO MONITOR.
--- NOTE | 2020-04-17 18:10 | NUR ---
PT STABLE OF THE VENT, PROPOFOL GTT WASTED IN PIXIS WITH RAFAELA MERCER.
--- NOTE | 2020-04-17 19:00 | NUR ---
awake. resps 34. denies acute resp diff. o2 cont 10 l/m per high flow cannula. breath sounds diminished bilat. hob remains elevated. has loose nonprod cough. equipment monitor phototypesetting shows a fib paced beats pvcs hr 116. #20 rac & #24 lfa saline locks. myers cath in place. urine clear yellow. bilat scds & fall precautions cont.
--- NOTE | 2020-04-17 19:40 | NUR ---
rt @ bedside. pt admits to home cpap every night. dr briggs updated on pts condition. orders rec'd.
--- NOTE | 2020-04-17 20:50 | NUR ---
2100 meds given. pt poorly reponsive. financial retirement plan specialist shows a fib paced beats hr 80-120. bp 90/51. rt entered room. abgs drawn.
--- NOTE | 2020-04-17 21:00 | NUR ---
adjustments made to bipap per rt.
--- NOTE | 2020-04-17 21:15 | NUR ---
responding better. denies distress. school bus monitor shows a fib paced beats hr 90.
--- NOTE | 2020-04-17 22:15 | NUR ---
fully awake. demanding bipap to be removed. rt notified. bipap removed & nc on per rt.
[2020-04-18] VITALS (18 sets, daily range): BP systolic 90–168; BP diastolic 45–97
--- NOTE | 2020-04-18 00:01 | NUR ---
eyes closed. no resp distress. o2 cont per nc. potline monitor shows a fib paced beats pvcs hr 90.
--- NOTE | 2020-04-18 01:50 | NUR ---
[facility] called this card writer hand with bc results.
--- NOTE | 2020-04-18 02:00 | NUR ---
pt poorly responsive. bipap resumed per rt. hob remains elevated.
--- NOTE | 2020-04-18 03:30 | NUR ---
pt awake. bipap removed per request. nc resumed.
--- NOTE | 2020-04-18 04:25 | NUR ---
lab here. blood drawn.
[2020-04-18 04:34] LABS: HEMATOCRIT 45.4 % (39.0-50.0); HEMOGLOBIN 14.6 g/dl (14.0-18.0); MEAN CELL VOLUME 94.2 fL CALC (80.0-100.0); MEAN CORPUSCULAR HGB 30.3 pG CALC (26.0-32.0); MEAN CORPUSCULAR HGB CONC 32.2 g/dL CAL (32.0-36.0); RED BLOOD COUNT 4.82 mill/uL (4.70-6.10)
[2020-04-18 04:48] LABS: ALBUMIN 3.7 g/dL (3.2-5.0); BILIRUBIN, TOTAL 1.3 mg/dL (0.0-1.4); CREATININE 1.8 mg/dL (0.7-1.3); POTASSIUM 4.8 mmol/l (3.5-5.1); TOTAL PROTEIN 6.4 g/dL (6.3-8.2)
--- NOTE | 2020-04-18 05:25 | NUR ---
xray here. pcxr obtained.
--- NOTE | 2020-04-18 06:00 | NUR ---
alyssia called on cordless phone per pts request. phone given to pt.
--- NOTE | 2020-04-18 06:00 | NUR ---
dr briggs updated on pts condition.
--- NOTE | 2020-04-18 07:30 | NUR ---
pt awake in bed; no apparent distress noted; assessment completed at this time; pt awake and alert; pt very agrumentive with this insurance writer in regards to nursing staff needs to retrieve his cpap machine and nursing staff holding him hostage; resp slightly labored; lungs diminished throughout; skin color wnl; o2 per nc at 6L hi ceci; casing sewer dry cough noted; hr irreg; wk pulses throughout; edema noted to ble; afib/ pvc/ paced on monitor; bilat scds intact; abd distended with bs present; no bm noted per insurance writer; myers to gravity draining clear yellow urine; cath strap intact; iv's flushed and patent to rac and rfa; no redness or edema noted at site; redness noted to ble; repositioned to right side; pt encouraged to self reposition; IS at bedside with poor effort noted; pt able to pull 500ml x8 reps; call light within reach; will continue to monitor
--- NOTE | 2020-04-18 08:05 | NUR ---
physician underwriter spoke with Amanda Kendall; updated provided; home cpap requested; Amanda to contact Jennifer Kothari and retrieve cpap machine
--- NOTE | 2020-04-18 09:00 | NUR ---
Amanda Kendall called per newspaper writer; newspaper writer request for Entresto to be brought in from home
--- NOTE | 2020-04-18 09:25 | NUR ---
Dr Marks present at bedside to assess pt and discuss plan of care;
--- NOTE | 2020-04-18 10:05 | NUR ---
awake in bed; no apparent distress noted; pt offers no complaints; afib/ pvc/ occ paced on monitor; o2 per nc; myers to gravity; call light within reach; will continue to monitor
--- NOTE | 2020-04-18 10:33 | NUR ---
Dr Marks called per real estate underwriter in regards for clarification of Lasix; order discontinued with progress note stating give one dose; order received and on chart
--- NOTE | 2020-04-18 11:02 | NUR ---
Krishna Gonzalez APRN called per internal communications writer in regards to Heparin and Eliquis ordered; orders to be placed
--- NOTE | 2020-04-18 12:05 | NUR ---
awake in bed eating lunch; no apparent distress noted; resp slightly labored; o2 per nc; myers to gravity; afib/pvc on monitor with occ paced beats noted; repositioned for comfort; IS remains at bedside/ pt instructed to use q1 hr x10 reps w/a; will continue to monitor
--- NOTE | 2020-04-18 14:20 | NUR ---
awake in bed; no apparent distress noted; resp slightly labored; o2 per nc; home cpap received and set up at bedside; myers to gravity; call light within reach; will continue to monitor
--- NOTE | 2020-04-18 16:01 | NUR ---
awake in bed; resp slightly labored; pt has removed home cpap machine; o2 per nc placed per software writer; myers to catheter; repositioned; afib/pvc on monitor; call light within reach; will continue to monitor
--- NOTE | 2020-04-18 16:47 | NUR ---
complete bed bath with catheter care; pt declined oral care; will continue to monitor
--- NOTE | 2020-04-18 17:45 | NUR ---
pt less responsive/ arousable to tactile stimuli; accucheck 140; RT at bedside; bipap reapplied; will continue to monitor
--- NOTE | 2020-04-18 18:07 | NUR ---
resting in bed with eyes closed; more alert but drowsy; bipap intact and maintined per RT; iv intact and patent with abt infusing without complication; myers to gravity; afib/pvc on monitor; call light within reach;
--- NOTE | 2020-04-18 18:51 | NUR ---
pt moved to ICU 6
--- NOTE | 2020-04-18 19:15 | NUR ---
bipap cont. breath sounds diminished bilat. automotive fleet supervisor shows a fib paced beats pvcs hr 86. #20 rac & #24 rfa saline locks. myers cath in place. urine clear yellow. bilat scds & fall precautions cont.
--- NOTE | 2020-04-18 20:30 | NUR ---
pt awake. requested bipap [id number] resumed.
--- NOTE | 2020-04-18 22:30 | NUR ---
home cpap pn. no distress.
[2020-04-19] VITALS (18 sets, daily range): BP systolic 92–153; BP diastolic 59–89
--- NOTE | 2020-04-19 00:01 | NUR ---
watching tv. no distress. cpap off. instructed to wear home cpap or nc. home cpap resumed.
--- NOTE | 2020-04-19 02:00 | NUR ---
assisted to lt side per request. product applications engineer shows afib paced beats pvcs hr 78.
--- NOTE | 2020-04-19 04:00 | NUR ---
resting quitly. resps even & unlabored. no apparent distress. cpap cont.
--- NOTE | 2020-04-19 06:00 | NUR ---
awake. home cpap cont. no distress. radiographer cardiac catheterization shows a fib paced beats pvcs hr 92.
--- NOTE | 2020-04-19 07:30 | NUR ---
pt awake in bed; no apparent distress noted; pt offers no complaints at this time; assessment completed; pt alert and oriened; denies pain; resp slightly labored; pt states no resp difficulty; lungs diminished throughout; skin color wnl; o2 blended into home cpap machine; hr irreg; afib/pvc/paced on monitor; wk pulses; 2+ edema noted to ble; abd distended with bs present; no bm noted per sba underwriter; myers to gravity; #20 ems site intact to rac, #24 noted to rfa; saline locked with no redness or edema noted at sites; plan of care/ am meds explained; IS present at bedside; pt encouraged to use q1 hr x10 reps; declined usage at this time; self repositioning encouraged; call light within reach; will continue to monitor
--- NOTE | 2020-04-19 07:55 | NUR ---
o2 sat noted at 73%; in to assess pt; pt noted to have removed o2 via nc; pt agrumentive with movie writer stating he can't eat with it (o2) in his nose; cpap and o2 difference explained; o2 reapplied with immed rise in o2 sat to 91%; afib/pvc on monitor; call light within reach; will continue to monitor
--- NOTE | 2020-04-19 08:07 | NUR ---
04/18/20 PT note Patient is screened fro PT intervention. He is known to us for recent admission. He would benefit from OT and PT evaluation if medical agrees and once stable medically
--- NOTE | 2020-04-19 10:04 | NUR ---
awake in bed; no apparent distress noted; pt offers no complaints; iv's intact; afib/pvc on monitor; myers to gravity; home cpap intact with blended o2; hot plate plywood press laborer at bedside; call light within reach; will continue to monitor
--- NOTE | 2020-04-19 11:28 | NUR ---
Dr Marks present to assess pt and discuss plan of care
--- NOTE | 2020-04-19 11:31 | NUR ---
[facility] called per music writer; spoke with Zoraida in regards to final report for blood cultures; blood culture is still prelim; Dr Marks informed
--- NOTE | 2020-04-19 11:40 | NUR ---
max assist x2 to sit on side of bed
--- NOTE | 2020-04-19 12:05 | NUR ---
awake sitting on the side of bed eating lunch; offers no complaints at this time; iv intact; afib/pvc on monitor; myers to gravity; o2 per nc; call light within reach; will continue to monitor
[2020-04-19 12:07] LABS: CREATININE 2.1 mg/dL (0.7-1.3); POTASSIUM 4.8 mmol/l (3.5-5.1)
--- NOTE | 2020-04-19 13:27 | NUR ---
Dr Marks called per card writer hand in regards to Coreg and Entresto; informed of fluc HR between 80-130s; orders received
--- NOTE | 2020-04-19 14:21 | NUR ---
resting in bed with eyes closed; no apparent distress noted; afib/pvc on monitor; o2/cpap intact; myers to gravity; call light within reach; will continue to monitor
--- NOTE | 2020-04-19 15:59 | NUR ---
awake in bed; offers no complaints; no apparent distress noted; resp even and unlabored; home cpap with o2 intact; iv's intact; no redness or edema noted at sites; afib/pvc on monitor; call light within reach; will continue to monitor
--- NOTE | 2020-04-19 17:57 | NUR ---
awake in bed; no apparent distress noted; offers no complaints; iv intact and patent; o2/home cpap intact; afib/pvc on monitor; myers to gravity; refused repositioning; call light within reach
--- NOTE | 2020-04-19 19:40 | NUR ---
PATIENT AWAKENS WITH VERBAL STIMULI, IS DROWSY, FOLLOWS COMMANDS, WHEN ASKED A QUESTION AT TIMES HE DOES NOT STAY AWAKE TO FULL ANSWER THE QUESTION. ORIENTED X3. ON HIS HOME CPAP. MARIEE CATHETER INTACT, DRAINS YELLOW/CLEAR URINE. RAC AND RFA IV'S INTACT, FLUSH PROPERLY, SALINE LOCKED. AFEBRILE. SOB NOTED WITH EXERTION AND WHEN TALKING. SATS 91%-98%. BP WNL. AFIB/PACED WITH PVC'S ON TELEMETRY. USES SUCTION YANKAUER FOR PRODUCTIVE COUGH, PHLEGM IS YELLOW AND THICK. SCD'S INTACT. SKIN TEAR DRESSING ON LFA CDI. POC FOR TONIGHT DISCUSSED, PATIENT NEEDS REINFORCEMENT, EDUCATED HE HAS FLUID OVERLOAD AND NEED TO WATCH AMOUNT OF WATER HE DRINKS BECAUSE IT IS AFFECTING HIS BREATHING WELL, PATIENT STATES, "THAT'S WHAT THEY SAY BUT I DON'T BELIEVE IT." HOB NEAR 45 DEGREES. CALL LIGHT WITHIN REACH.
--- NOTE | 2020-04-19 21:43 | NUR ---
PATIENT ABLE TO SWALLOW HIS BEDTIME MEDS WITH NO DIFFICULTY. CUP OF ICED WATER PROVIDED PER REQUEST. NO OTHER NEEDS AT THIS TIME. NO COMPLAINTS. WATCHES TV, IS ABLE TO TURN HIS LIGHT OFF. SUCTIONS HIS MOUTH NEEDED, CPAP INTACT. CALL LIGHT WITHIN REACH.
[2020-04-20] VITALS (12 sets, daily range): BP systolic 114–149; BP diastolic 47–85
--- NOTE | 2020-04-20 00:21 | NUR ---
PATIENT IS AWAKE. EDUCATED ON ANTIBIOTIC AND STEROID RECEIVING. NO ACUTE DISTRESS SHOWN. HOME CPAP REMAINS ON. NO COMPLAINTS OR NEEDS AT THIS TIME. REFUSES REPSOITIONING. CALL LIGHT WITHIN REACH.
--- NOTE | 2020-04-20 00:29 | NUR ---
PT LOAD OUT WORKER LIGHT REQUESTS A CUP OF WATER, PROVIDED.
--- NOTE | 2020-04-20 02:24 | NUR ---
PATIENT DESATS TO 83% WHEN SLEEPING. AWAKENS EASILY, AFTER AWAKE HIS O2 SAT INCREASES TO 95%.
--- NOTE | 2020-04-20 03:49 | NUR ---
PATIENT AWAKENS EASILY WITH VERBAL STIMULI. AFEBRILE, NO ACUTE DISTRESS SHOWN. HOME CPAP ON, SATS 93%. NO ACUTE DISTRESS SHOWN. NO COMPLAINTS OR NEEDS AT THIS TIME. CALL LIGHT WITHIN DYAN H.
[2020-04-20 05:34] LABS: HEMATOCRIT 44.7 % (39.0-50.0); HEMOGLOBIN 14.4 g/dl (14.0-18.0); IMMATURE GRANULOCYTES 1.9 % (0.0-5.0); MEAN CELL VOLUME 95.5 fL CALC (80.0-100.0); MEAN CORPUSCULAR HGB 30.8 pG CALC (26.0-32.0); MEAN CORPUSCULAR HGB CONC 32.2 g/dL CAL (32.0-36.0); NEUT# 4.31 thou/uL (1.82-7.42); RED BLOOD COUNT 4.68 mill/uL (4.70-6.10); RED CELL DISTRI WIDTH 13.1 % (11.5-15.5)
--- NOTE | 2020-04-20 05:48 | NUR ---
IV ANTIBIOTIC AND IV STEROID GIVEN TO PATIENT. PT REQUESTS MORE WATER, PT EDUACTED ON FLUID OVERLOAD, EDUACTED THAT IV FLUIDS ALSO ARE PART OF HIS INTAKE, PT YELLS, "THAN I DON'T WANT IT." PT EXPLAINED THESE MEDICATIONS ARE TO HELP HIM GET BETTER. PT ASKS, "THE BLOOD DRAWS HELP ME GET BETTER ?" I EXPLAINED TO PATIENT BLOOD WORK IS TO FIND OUT HOW HIS KIDNEY FUNCTION IS DOING WELL OTHER BLOOD WORK, PT YELLS," YOU WANNA KNOW HOW MANY TIMES I'VE BEEM STUCK, I DON'T LIKE IT, YOU CAN HAVE IT." PT EXPLAINED AGAIN WHAT THE BLOOD WORK INDICATES. CUP OF ICE PROVIDED. CPAP REMAINS INTACT, MARIEE CATHETER EMPTIED, URINE IS NOW VIMAL. NO OTHER NEEDS OR COMPLAINTS BY PT. CALL LIGHT WITHIN REACH.
[2020-04-20 05:58] LABS: CREATININE 1.9 mg/dL (0.7-1.3)
--- NOTE | 2020-04-20 06:15 | NUR ---
DR CAMPBELL NOTIFIED OF PATIENT'S BUN 83 THIS MORNING. PATIENT DID NOT RECIEVE IV LASIX YESTERDAY. NO NEW ORDERS RECEIVED.
--- NOTE | 2020-04-20 06:45 | NUR ---
RECIEVED REPORT FROM RAFAELA HOLCOMB. ASSUMED PT CARE.
--- NOTE | 2020-04-20 07:30 | NUR ---
PT A&OX3, ABLE TO MAKE NEEDS KNWON. CPAP@6LPM IN PLACE, PT DENIES CP, SOB OR DISTRESS AT THIS TIME. REMAINS AFIB/PACED/PVC'S ON TELEMETRY, HR 81. ISX10/HR ENCOURAGED @BS, PT REFUSED AT THIS TIME. LS DIMINISHED THROUGHOUT. SA02@98%. ABDOMEN DISTENDED SOFT, NON-TENDER, BSX4 ACTIVE. LBM 5-23-20. 24G TO RFA/SL & 20G/SL TO RAC. NO S/S OF INFILTRATION OR INFECTION. CONTINUES WITH YELLOW THICK MUCUS, SUCTION AT BS FOR PT USE. BLE'S WITH SCD'S INTACT. CALL LIGHT IN REACH. WILL MONITOR.
--- NOTE | 2020-04-20 07:45 | NUR ---
DIETARY ON UNIT, PT REPOSITIONED, BREAKFAST TRAY SETUP.
--- NOTE | 2020-04-20 09:26 | NUR ---
DR. OROZCO AT BEDSIDE FOR ASSESSMENT AND TO DISCUSS PLAN OF CARE. NEW ORDERS RECIEVED.
--- NOTE | 2020-04-20 09:54 | NUR ---
AUTHORIZATION OF MEDICAL RECORDS FOR RECORDS AT [facility]. FAXED OVER.
--- NOTE | 2020-04-20 11:24 | NUR ---
UPON ENTERING PT ROOM, CPAP OFF, PT SAT 73%, PT ASKED TO PLACE CPAP BACK ON, PT REFUSED. PT STATED, I HAD TO FIGHT SO HARD TO GET THIS MACHINE. PT ENCOURAGED TO PLACE CPAP BACK HE FOUGHT SO HARD FOR, PT AGAIN DECLINED. DR. OROZCO NOTIFIED. CALL LIGHT IN REACH. WILL MONITOR.
--- NOTE | 2020-04-20 12:16 | NUR ---
PT HEARD MOANING AND CUSSING, O2SA@73%, PT ONCE AGAIN EDUCATED ON THE IMPORTANCE OF MEDICAL COMPLIANCE AND NEED TO KEEP CPAP IN PLACE. PT ARGUMENTATIVE WITH STAFF. PT NOTED WITH SOILED LINEN. PT ASKED IF HE WAS AWARE. PT STATED NO "I'M FINE, DON'T MESS WITH ME." SUPPLIES ACQUIRED TO GIVE PT BED BATH AND LINEN CHANGE, PT REFUSED. PT STATED "i'M TIRED OF YOU NAGGING ME TO DO THIS AND DO THAT. DON'T COME BACK IN HERE." PT ASKED TO THINK ABOUT IT AND i WOULD BE BACK TO CHECK IN ON HIM. CALL LIGHT IN REACH. WILL MONITOR.
--- NOTE | 2020-04-20 12:45 | NUR ---
DR. OROZCO AT BEDSIDE, EXPLAINED TO PT THE NEED TO KEEP CPAP OR HIGH FLOW NC ON SO NOT TO DESTAT. PT AGAIN MOANING OUT SOON AT DR. OROZCO LEFT THE ROOM. ANSWERED PT YELLING OUT, PT AGAIN IS NON- COMPLIANT WITH . SA02@82%. CALL LIGHT IN REACH. WILL MONITOR.
--- NOTE | 2020-04-20 13:15 | NUR ---
PT RIPPED CALL LIGHT OUT OF WALL WHICH SET OFF ALARM. UPON ENTERING THE ROOM, PT ASKING STAFF FOR 2 MORE. WHEN PT ASKED TO CLARIFY. PT AGAIN STATED "I WANT TO MORE" PT AGAING ASK TO REPLACE O2. PT THEN PUT CPAP BACK ON. PT REMAINS ARGUMENTATIVE WITH STAFF AND CONTINUES TO DECLINE BEDBATH OR PERICARE. CALL LIGHT IN REACH. WILL MONITOR.
--- NOTE | 2020-04-20 14:21 | NUR ---
PT GIVEN COMPLETE BED BATH, MARIEE CARE AND LINEN CHANGE. PT TOLERATED WELL. MARIEE REMAINS PATENT, DRAINING TO BSD VIA GRAVITY. URINE VIMAL.
--- NOTE | 2020-04-20 16:00 | NUR ---
PT RIPPED OF ALL MONITORING EQUIPMENT. PT ASKED NOT TO TAKE OFF EQUIPMENT, PT BECAME ARGUMENTATIVE WITH STAFF. EDUCATION GIVEN ON THE NEED AND COST OF REPLACEMENT EQUIPMENT. NEW LEADS PLACED AND PULSE OX. CALL LIGHT IN REACH. WILL MONITOR.
--- NOTE | 2020-04-20 17:26 | NUR ---
PT TOOK OFF CPAP, SA02@80%, PT TURNED OFF EQUIPMENT FROM BEDSIDE. PT STAED HE DID NOT DO IT. THIS HEALTH SERVICE WORKER OBSERVED HIM PEEL OFF THE EQUIPMENT. CPAP REAPPLIED, PT REMAINS ARGUMENTATIVE, YELLING OUT OF ROOM. PT ASKED SEVERAL TIMES TO QUIET DOWN . PT REFUSED, CALL LIGHT IN REACH. WILL MONITOR.
--- NOTE | 2020-04-20 17:37 | NUR ---
CALLED WITH CODE, UPDATE GIVEN.
--- NOTE | 2020-04-20 17:53 | NUR ---
DIETARY ON UNIT, TOOK DINNER TRAY IN, PT REFUSED AT THIS TIME. PT AGAIN FOUND TO HAVE PULSE OX PEELED OFF AND CPAP OFF. PT REFUSED TO REPLACE AT THIS TIME. PT EDUCATED ON THE RISK UP TO FOR BEING NON-COMPLIANT WITH CPAP. PT AGAIN REFUSED TO PLACE CPAP ON . CALL LIGHT IN REACH. WILL MONITOR.
--- NOTE | 2020-04-20 18:06 | NUR ---
PT OFFERED DINNER TRAY AGAIN, ACCEPTED. NC REAPPLIED. SA02@96%. CALL LIGHT IN REACH. WILL MONITOR.
--- NOTE | 2020-04-20 19:05 | NUR ---
PATIENT LAYS WITH HOB 45 DEGREES. IS AWAKE AND ORIENTED X4. NURSING ASSESSMENT COMPLETED. CPAP ON 6 L/MIN, SATS 88%-95%. IV X2 INTACT, LUSH PROPERLY, SALINE LOCKED. MARIEE CATHETER INTACT, RINE VIMAL. SCD'S INTACT, TAKEN OFF FOR A MOMEMT FOR ASSESSMENT. POC FOR TONIGHT DISCUSSED, PATIENT NEEDS REINFORCEMENT. AFEBRILE. AFIB/PACED ON TELE, HR RANGES 90'S-120'S. SUCTIONS MOUTH HIMSELF NEEDED. CALL LIGHT WITHIN REACH.
--- NOTE | 2020-04-20 20:41 | NUR ---
PATIENT DESATED TO 84%, WHEN I CHECKED ON HIM, HE HAD TAKEN HIS CPAP OFF, REMINDED HIM HE IS NOT OXYGENATING WELL WITHOUT ASSISTANCE OF 02, PATIENT PLACED CPAP ON.
--- NOTE | 2020-04-20 20:55 | NUR ---
PATIENT ABLE TO TOLERATE HIS BEDTIME MEDICATINS, CUP OF ICED WATER PROVIDED. PATIENT GROANS LIKE IF HE WAS IN PAIN, I ASKED HIM IF HE WAS HAVING PAIN, PT STATES, "NO, I'M PEEING." MARIEE CATHETER INTACT, DRAINS TO GRAVITY. NO OTHER NEEDS OR COMPLAINTS. CALL LIGHT WITHIN REACH.
[2020-04-21] VITALS (17 sets, daily range): BP systolic 90–157; BP diastolic 47–105
--- NOTE | 2020-04-21 00:21 | NUR ---
PATIENT IS AWAKE, C/O HE HAS TO "PEE," PT WAS REMINDED HE HAS A MARIEE CATHETER. NO OTHER NEEDS OR COMPLAINTS. CALL LIGHT WITHIN REACH.
--- NOTE | 2020-04-21 01:53 | NUR ---
PATIENT AWAKENS EASILY WHEN SPOKEN TO. REQUESTS MORE WATER, PROVIDED. NO COMPLAINTS. CALL LIGHT WITHIN REACH.
--- NOTE | 2020-04-21 03:14 | NUR ---
PATIENT REMOVED HIS CPAP, PATIENT ASSISTED TO PACE IT BACK ON, PATIENT INTERMITTENLT COUGHS UP PGLEGM AND SELF SUCTIONS. NO ACUTE DISTRESS SHOWN. CALL LIGHT WITHIN REACH.
--- NOTE | 2020-04-21 04:44 | NUR ---
SEAMAN IN ROOM FOR BLOOD WORK.
--- NOTE | 2020-04-21 05:03 | NUR ---
PULSE OX CHANGED TO LEFT HAND DUE TO LOW READING, SATS 93% NOW. CPAP INTACT.
[2020-04-21 05:38] LABS: CREATININE 1.7 mg/dL (0.7-1.3); POTASSIUM 5.1 mmol/l (3.5-5.1)
--- NOTE | 2020-04-21 05:48 | NUR ---
PATIENT AWAKENS WHEN SPOKEN TO, REQUESTS MORE WATER, PROVIDED. ANTIBIOTIC AND STEROID IV GIVEN. NO COMPLAINTS. NO ACUTE DISTRESS SHOWN. CALL LIGHT WITHIN REACH.
--- NOTE | 2020-04-21 07:30 | NUR ---
REPORT RECEIVED FROM RAFAELA HOLCOMB. PT RESTING IN BED SEMI FOWLERS WITH EYES CLOSED; AWAKENS SPONTANEOUSLY. C/O MODERATE PAIN TO LEFT ARM; 4+ PITTING EDEMA NOTED TO HAND; ELEVATED ON PILLOW. DRESSING TO LFA CDI. RESPIRATIONS EVEN AND UNLABORED AT REST WITH CPAP IN PLACE AT 6L. LUNGS ARE CLEAR ANTERIORLY AND WHEEZING POSTERIORLY. WEAK PULSES; PEDAL PULSES WITH DOPPLER; DISCOLORATION; SLUGGLISH CAP REFILL; SCDS INTACT TO BLE. MARIEE DRAINING VIMAL CLEAR URINE. ACCU CHECK 164. PLAN OF CARE REVIEWED. PT ENCOURAGED TO VERBALIZE CONCERNS. STATES UNDERSTANDING. SAFETY MEASURES IN PLACE. CALL LIGHT WITHIN REACH.
--- NOTE | 2020-04-21 07:45 | NUR ---
DR. OROZCO AT BEDSIDE FOR EVAL. DISCUSSED DISCHARGE PLANS TO A DIFFERENT REHAB.
--- NOTE | 2020-04-21 08:56 | NUR ---
COVID SWAB OBTAINED AND SENT TO LAB.
--- NOTE | 2020-04-21 11:57 | NUR ---
PT AGAIN ASSISTED WITH POSITIONING; HOB ELEVATED AND SET UP FOR LUNCH. PT QUICKLY DESATURATES WHEN CPAP IS NOT IN PLACE TO 81%. PT REMOVES AND ADJUSTED CPAP FREQUENTLY; REQUIRES FREQUENT REMINDING TO KEEP CPAP IN PLACE.
--- NOTE | 2020-04-21 12:05 | NUR ---
IRAM, GRADE SCHOOL TEACHER, CALLED FOR UPDATE. ZOSYN INFUSING WITHOUT DIFFICULTY; PERIPHERAL IV SITES X 2 APPEAR HEALTHY AND FLUSH.
--- NOTE | 2020-04-21 14:28 | NUR ---
PHYSICAL THERAPY AT BEDSIDE; ASSISTED PT TO CHAIR WITH 2 PERSON MAX ASSIST. LEGS ARE ELEVATED. PT DEMONSTRATED USE OF IS; POOR RESPIRATORY EFFORT; DOES NOT MAKE 500. NOW SPEAKING WITH FAMILY ON THE PHONE.
--- NOTE | 2020-04-21 15:32 | NUR ---
PT REPOSITIONED BACK INTO BED WITH ASSISTANCE FROM PT; LEFT ARM WITH LIMITED MOBILITY DUE TO RDS. INCONTINENT OF SMALL SOFT BOWEL MOVEMENT; HYGIENE PROVIDED INCLUDING MARIEE CARE AND LINENS CHANGED. PT REQUESTING WATER; PROVIDED WITH ENCOURAGEMENT TO LIMIT ORAL INTAKE. 950 ML OF CLOUDY VIMAL URINE EMPTIED FROM MARIEE.
--- NOTE | 2020-04-21 16:19 | NUR ---
PT note Patient is seen for functional assessment. He would do well to return to [facility] for rehab when medically stable as he is progressing with his maria alejandra payne previous DC
--- NOTE | 2020-04-21 18:05 | NUR ---
LARGE AMOUNT OF URINARY INCONTINENCE NOTED TO LINENS; PT CHANGED AND HYGIENE PROVIDED. NURSE OBSERVED URINE ESCAPING AROUND CATHETER. 14F MARIEE REMOVED AND 16F PLACED; PT TOLERATED WELL.
--- NOTE | 2020-04-21 19:15 | NUR ---
drowsy when awakened. denies distress. home cpap conts. breath sounds diminished bilat. cardiac rehabilitation specialist shows a fib paced beats pvcs hr 97. #20 rac & #24 rfa saline locks. myers cath in place. urine cloudy yellow. pt refused to turn. fall precautions cont.
--- NOTE | 2020-04-21 22:00 | NUR ---
awake. drowsy. no c/o voiced. cpap cont.
[2020-04-22] VITALS (17 sets, daily range): BP systolic 53–170; BP diastolic 28–117
--- NOTE | 2020-04-22 00:01 | NUR ---
takes naps for few minutes @ a time. refuses to be turned.
--- NOTE | 2020-04-22 02:00 | NUR ---
awake. no resp distress. hospital monitor shows a fib paced beats pvcs hr 112. cpap cont.
--- NOTE | 2020-04-22 04:30 | NUR ---
lab here. blood drawn.
--- NOTE | 2020-04-22 05:00 | NUR ---
dsg to lfa found on overbed table. vaseline gauze, 4x4 & coban applied.
[2020-04-22 05:26] LABS: CREATININE 1.9 mg/dL (0.7-1.3); POTASSIUM 5.1 mmol/l (3.5-5.1)
--- NOTE | 2020-04-22 07:00 | NUR ---
PT RESTING IN BED AWAKE. PT IS ALERT AND ORIENTED X3. SHIFT ASSESSMENT COMPLETED AT THIS TIME. IV PATENT X2. CALL LIGHT IN REACH. WILL CONTINUE TO MONITOR.
--- NOTE | 2020-04-22 07:40 | NUR ---
PT SET UP FOR AM MEAL
--- NOTE | 2020-04-22 08:00 | NUR ---
DR OROZCO NOTIFIED OF DECREASED O2 SATS AND NEED FOR INCREASED O2 AND DECREASED O2 SATS. ORDERS RECEIVED FOR ABG AND TO PLACE PATIENT ON BIPAP.
--- NOTE | 2020-04-22 08:23 | NUR ---
RT AT BEDSIDE FOR ABG AND TO PLACE PT ON BIPAP
--- NOTE | 2020-04-22 09:00 | NUR ---
DR OROZCO AT BEDSIDE AT THIS TIME.
--- NOTE | 2020-04-22 10:05 | NUR ---
RT AT BEDSIDE FOR REPEAT ABG
--- NOTE | 2020-04-22 10:57 | NUR ---
PT RESTING IN BED WITH EYES CLOSED AT THIS TIME. RESP ARE EVEN AND UNLABORED. NO DISTRESSNOTED. CALL LIGHT IN REACH. WILL CONTINUE TO MONITOR.
--- NOTE | 2020-04-22 11:05 | NUR ---
PT PULLED OFF BIPAP. PT REFUSING TO WEAR BIPAP AT THIS TIME. PT SWATTING AT STAFF. PT CONTINUES TO BE CONFUSED.
--- NOTE | 2020-04-22 11:15 | NUR ---
RT AT BEDSIDE AT THIS TIME. PT CONTINUES TO REFUSE BIPAP. PT REMAINS CONFUSED. DR OROZCO NOTIFIED.
--- NOTE | 2020-04-22 11:25 | NUR ---
NEXT OF [facility] IRAM CALLED. NOTIFIED OF PATIENT STATUS. IRAM STATES THAT SHE HAS POA AND IS PT HEALTH CARE SURROGATE. REQUESTED THAT SHE DROP OFF THOSE PAPERS. SHE STATES THAT SHE WILL. SHE STATES THAT IT IS THE PATIENTS WISHES TO BE A DNR WELL. DR ERNESTO STEWARDIFEMiriam. CONNECTED IRAM TO CORDLESS AND IRAM TALKED WITH PATIENT. PATIENT CONTINUES TO REFUSE BIPAP.
--- NOTE | 2020-04-22 11:45 | NUR ---
PT YELLING ALLOWED CONTINUOUSLY IN ROOM NO. WHEN ASKED PT IS UNSURE WHY HE IS YELLING
--- NOTE | 2020-04-22 12:30 | NUR ---
DR OROZCO NOTIFIED OF PATIENT STATED THAT HE IS HAVING PAIN. NEW ORDERS RECEIVED.
--- NOTE | 2020-04-22 13:50 | NUR ---
PT PULLING OFF O2. PT REMAINS CONFUSED. REORIENTATION UNSUCCESSFUL. O2 PLACED BACK ON PATIENT O2 SAT 50%. O2 SATS DID RETURN WITH HI CYNTHIA TO 90%
--- NOTE | 2020-04-22 14:05 | NUR ---
PHONED NEXT OF KIN SPOUSE AND ASKED THAT SHE BRING POA PAPERWORK TODAY. SHE STATES THAT SHE WILL BFING IT UP SOON POSSIBLE.
--- NOTE | 2020-04-22 15:08 | NUR ---
RECEIVED POA AND HEALTHCARE SURROGATE PAPERWORK. PLACED ON CHART.
--- NOTE | 2020-04-22 15:19 | NUR ---
DR OROZCO NOTIFIED OF POA/HEALTHCARE SURROGATE PAPERWORK.
--- NOTE | 2020-04-22 15:50 | NUR ---
phoned dr interiano with update on pt status. dnr order received.
--- NOTE | 2020-04-22 16:02 | NUR ---
PT REMAINES UNRESPONSIVE TO VERBAL STIMULI. WILL CONTINUE TO MONITOR.
--- NOTE | 2020-04-22 16:38 | NUR ---
RESPIRATIONS CEASED AT THIS TIME. Ronaldo FORD AND Dallas HARRIS VERIFIED. NO HEART SOUNDS AND NO BREATH SOUNDS.
--- NOTE | 2020-04-22 16:40 | NUR ---
DR OROZCO NOTIFIED AND NEXT OF [facility] IRAM NOTIFIED OF .
--- NOTE | 2020-04-22 17:00 | NUR ---
ME OFFICE NOTIFIED. EVELYN WILL CALL BACK IN 30 MINUTES
--- NOTE | 2020-04-22 17:15 | NUR ---
[employer] NOTIFIED AT THIS TIME.
--- NOTE | 2020-04-22 17:25 | NUR ---
[facility] CALLED BACK RELEASED PATIENT REFERENCE ASHLEY [id number]
--- NOTE | 2020-04-22 17:59 | NUR ---
EVELYN WITH LIBRARY SALES CONSULTANT OFFICE STATES THAT IT IS OK TO RELEASE THE BODY TO THE HOME AND THAT THE HOSPITAL WILL NEED TO CALL THE MEDICAL EXAMINERS OFFICE WITH THE RESULTS OF COVID-19 TEST.
--- NOTE | 2020-04-22 18:20 | NUR ---
[place] FROM [facility] NOTIFIED.
--- NOTE | 2020-04-22 20:00 | NUR ---
[place] [facility] [place]
--- NOTE | 2020-04-22 20:20 | NUR ---
[facility] from [facility].
--- NOTE | 2020-04-23 11:58 | NUR ---
home called and results of covid19 given
--- NOTE | 2020-04-23 12:01 | NUR ---
medical officer psychiatry notified of covid19 results
== END 2020-04-22 16:38 | disposition expired | DRG 208 ==
LOC: ICU 12:28
PROVIDERS: Nurse Practitioner Family; ADMIT Internal Medicine; ATTEND Internal Medicine
PROC: 5A1935Z Respiratory Ventilation, Less than 24 Consecutive Hours (ICD-10-PCS; principal; 2020-04-17)
PROC: 5A09357 Assistance with Respiratory Ventilation, Less than 24 Consecutive Hours, Continuous Positive Airway Pressure (ICD-10-PCS; 2020-04-17)
PROC: 0T2BX0Z Change Drainage Device in Bladder, External Approach (ICD-10-PCS; 2020-04-21)
PROC: 5A09357 Assistance with Respiratory Ventilation, Less than 24 Consecutive Hours, Continuous Positive Airway Pressure (ICD-10-PCS; 2020-04-22)
DX: J96.22 Acute and chronic respiratory failure with hypercapnia (principal); J18.9 Pneumonia, unspecified organism; I13.0 Hypertensive heart and chronic kidney disease with heart failure and stage 1 through stage 4 chronic kidney disease, or unspecified chronic kidney disease; N17.9 Acute kidney failure, unspecified; J44.0 Chronic obstructive pulmonary disease with (acute) lower respiratory infection; G90.512 Complex regional pain syndrome I of left upper limb; J96.21 Acute and chronic respiratory failure with hypoxia; I50.9 Heart failure, unspecified; E11.22 Type 2 diabetes mellitus with diabetic chronic kidney disease; N18.9 Chronic kidney disease, unspecified; E11.42 Type 2 diabetes mellitus with diabetic polyneuropathy; I48.91 Unspecified atrial fibrillation; Y95 Nosocomial condition; Z66 Do not resuscitate; Z87.891 Personal history of nicotine dependence; Z79.84 Long term (current) use of oral hypoglycemic drugs; Z78.1 Physical restraint status; Z79.01 Long term (current) use of anticoagulants; Z91.81 History of falling; Z20.828 Contact with and (suspected) exposure to other viral communicable diseases
CPT/HCPCS: S0164